=== PATIENT | male | born 1970 | race Hispanic/Latino ===

== ENCOUNTER 2017-03-03 13:19 | Emergency (ER) | payer OTHER ==
[~2017-03-03] VITALS: Ht 180.3 cm; Wt 60.9 kg
[2017-03-03] MEDS ORDERED: METHOCARBAMOL750 MG PO (13:31)
[2017-03-03] MEDS ORDERED: ULTRACET1 TABLET PO (13:32)
[2017-03-03] MEDS ORDERED: DIAZEPAM5 MG PO (13:32)
[2017-03-03] MEDS ORDERED: HYDROCODON-ACE1 EAC9 PO (13:33)
[2017-03-03] MEDS ORDERED: FLEXERIL10 MG PO ×2 (13:33→13:35)
[2017-03-03] MEDS ORDERED: NAPROXEN500 MG PO (13:35)
[2017-03-03] MEDS ORDERED: PREDNISONE20 MG PO (13:35)
[2017-03-03] MEDS ORDERED: LIDODERM 5% P1 PATCH TD (13:35)
[2017-03-03 14:40] VITALS: BP 134/81
== END 2017-03-03 14:52 | disposition home or self-care (01) ==
LOC: EME 13:19
DX: G89.29 Other chronic pain (principal); M54.42 Lumbago with sciatica, left side
CPT/HCPCS: 99281; 99284; J1885; J2405; J3010; J7512